=== PATIENT | female | born 1985 | race Two or more races ===

== ENCOUNTER 2017-03-09 20:57 | Emergency (ER) | payer SELFPAY ==
[~2017-03-09] VITALS: Ht 162.6 cm; Wt 63.5 kg
[2017-03-09 21:05] VITALS: BP 131/79
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
[2017-03-09] MEDS ORDERED: Norco 5mg/325mg tab ORAL ONE (21:15)
[2017-03-09] MEDS ORDERED: Tetanus/Diptheria/Pertussis Vaccine 0.5ml Syr IM ONE (21:15)
[2017-03-09] MEDS ORDERED: Bacitracin Oint UD TOPIC ONE (21:45)
[2017-03-09] MEDS ORDERED: KEFLEX500 MG ORAL (22:01)
[2017-03-09] MEDS ORDERED: HYDROCODON-ACE1 EA15 ORAL (22:01)
[2017-03-09 22:12] VITALS: BP 131/79
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
== END 2017-03-09 22:18 | disposition home or self-care (01) ==
LOC: EDBD 20:57 → EMR 21:13
DX: S02.2XXA Fracture of nasal bones, initial encounter for closed fracture (principal); S01.23XA Puncture wound without foreign body of nose, initial encounter; Y04.2XXA Assault by strike against or bumped into by another person, initial encounter; Y92.89 Other specified places as the place of occurrence of the external cause
CPT/HCPCS: 70486; 99284